=== PATIENT | male | born 1990 | race Caucasian/White ===

== ENCOUNTER 2019-02-11 19:39 | Emergency (ER) | payer MEDICAID, OTHER ==
[2019-02-11 20:09] VITALS: O2SAT 99
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
[2019-02-11 20:33] VITALS: BP 116/75; PULSE 77
== END 2019-02-11 20:45 | disposition home or self-care (01) ==
LOC: ED 19:39
DX: Z76.89 Persons encountering health services in other specified circumstances (principal)
CPT/HCPCS: 99284